=== PATIENT | female | born 1935 | race Caucasian/White ===

== ENCOUNTER 2017-09-22 05:48 | Emergency (ER) | payer MEDICARE, BC ==
[2017-09-22] MEDS ORDERED: methylPREDNISolone Sodium Succinate 125 MG/2 ML SDV IVPUSH ONE (06:18)
[2017-09-22] MEDS ORDERED: Famotidine 20 MG/2 ML SDV IVPUSH ONE (06:19)
[2017-09-22] MEDS ORDERED: Loratadine 10 MG Tab PO ONE (06:19)
[2017-09-22] MEDS ORDERED: diphenhydrAMINE 50 MG/ML SDV IVPUSH ONE (06:19)
--- NOTE | 2017-09-22 06:46 | EDM.PDOC ---
ED HPI GENERAL MEDICAL PROBLEM - General Chief Complaint: ENT Problem Stated Complaint: SORE THROAT Time Seen by Provider: 09/22/17 06:05 Source of Information: Reports: Patient History Limitations: Reports: No Limitations - History of Present Illness INITIAL COMMENTS - FREE TEXT/NARRATIVE: c/o ST pt with slight ST and rhinorrhea x 3d, inc'd ST yesterday, had trouble breathing during the night, needed to sit forward at least twice during the night to breath no f/c/d no h/o asthma, hayfever or allergies no change in meds in at least 3y has used OTC cold med with limited benefit throat Pain Score (Numeric/FACES): 10 - Related Data Allergies Allergy/AdvReac Type Severity Reaction Status Date / Time No Known Allergies Allergy Verified 09/22/17 06:02 Home Meds: Home Meds Allopurinol [Zyloprim] 300 mg PO DAILY 01/10/14 [History] Aspirin [Jesusita Chewable Aspirin] 81 mg PO DAILY 01/10/14 [History] Atenolol/Chlorthalidone [Tenoretic 50] 0.5 each PO DAILY 01/10/14 [History] Calcium Carbonate/Vitamin D3 [Calcium 600 + Vit D Tablet] 1 each PO BID [History] Cholestyramine/Aspartame [Cholestyramine Light Powder] 1 packet PO ASDIRECTED [History] Lisinopril 5 mg PO DAILY 01/10/14 [History] Loperamide [Imodium] 2 mg PO ASDIRECTED PRN 01/10/14 [History] Multivitamin [Multivitamins] 1 each PO DAILY 01/10/14 [History] Sertraline HCl 50 mg PO DAILY 01/10/14 [History] Simvastatin 20 mg PO DAILY 01/10/14 [History] metFORMIN [Glucophage] 500 mg PO BID 01/10/14 [History] Famotidine 20 mg PO DAILY #5 tablet 09/22/17 [Rx] Loratadine 10 mg PO DAILY #30 tablet 09/22/17 [Rx] predniSONE [Prednisone] 20 mg PO DAILY #7 tablet 09/22/17 [Rx] Past Medical History HEENT History: Reports: Impaired Vision Cardiovascular History: Reports: High Cholesterol, Hypertension Endocrine/Metabolic History: Reports: Diabetes, Type II - Past Surgical History HEENT Surgical History: Reports: Cataract Surgery Female Surgical History: Reports: Hysterectomy Social & Family History - Alcohol Use Days Per Week of Alcohol Use: 0 - Recreational Drug Use Recreational Drug Use: No ED ROS ENT - Review of Systems Review Of Systems: See Below Constitutional: Reports: No Symptoms. Denies: Fever, Chills, Malaise, Weakness , Night Sweats, Diaphoresis HEENT: Reports: Rhinitis, Throat Pain, Throat Swelling Respiratory: Reports: Shortness of Breath Endocrine: Reports: No Symptoms GI/Abdominal: Reports: No Symptoms : Reports: No Symptoms Musculoskeletal: Reports: No Symptoms Skin: Reports: No Symptoms Neurological: Reports: No Symptoms Psychiatric: Reports: No Symptoms Hematologic/Lymphatic: Reports: No Symptoms Immunologic: Reports: No Symptoms ED EXAM, ENT - Physical Exam Exam: See Below Exam Limited By: No Limitations General Appearance: Alert, WD/WN, Mild Distress, Other (walks and moves easily) Eye Exam: Bilateral Eye: Normal Inspection Ears: Normal External Exam, Normal Canal, Hearing Grossly Normal, Normal TMs Nose: Normal Inspection, Normal Mucousa, No Blood, Other (no swell, no mucus, patent, max sinus NT) Mouth/Throat: Other (mild swell of tongue (inc'd 25%), moderate swell of uvula ( 3x nl size), no red, no exudate, oropharynx seen) Head: Atraumatic, Normocephalic Neck: Normal Inspection, Supple, Non-Tender, Full Range of Motion. No: Lymphadenopathy (R), Lymphadenopathy (L) Respiratory/Chest: No Respiratory Distress, Lungs Clear, Normal Breath Sounds, No Accessory Muscle Use, Chest Non-Tender Cardiovascular: Regular Rate, Rhythm, No Edema, No Gallop, No JVD, No Murmur, No Rub GI/Abdominal: Normal Bowel Sounds, Soft, Non-Tender, No Distention, No Mass Back: Normal Inspection, Full Range of Motion Extremities: Normal Inspection, Normal Range of Motion, Non-Tender, No Pedal Edema Neurological: Alert, Oriented, CN II-XII Intact, Normal Cognition, No Motor/ Sensory Deficits Psychiatric: Normal Affect, Normal Mood Skin: Warm, Dry, Intact, Normal Color, No Rash Lymphatic: No Adenopathy Course - Vital Signs Last Recorded V/S: Last Vital Signs Temp 36.8 C 09/22/17 05:50 Pulse 82 09/22/17 05:50 Resp 20 09/22/17 05:50 BP 146/69 H 09/22/17 05:50 Pulse Ox 93 L 09/22/17 05:50 - Orders/Labs/Meds Orders: Active Orders 24 hr Category Date Time Status Max Facial Sinus wo Cont [CT] Stat Exams 09/22/17 06:23 Ordered Soft Tissue Neck wo Cont [CT] Stat Exams 09/22/17 06:23 Ordered CBC WITH AUTO DIFF [HEME] Stat Lab 09/22/17 06:19 Ordered COMPREHENSIVE METABOLIC PN,CMP [CHEM] Stat Lab 09/22/17 06:19 Ordered CRP [C-REACTIVE PROTEIN] [CHEM] Stat Lab 09/22/17 06:19 Ordered Meds: Medications Discontinued Medications Generic Name Dose Route Start Last Admin Trade Name Kevin PRN Reason Stop Dose Admin Diphenhydramine HCl 50 mg 09/22/17 06:19 Benadryl IVPUSH 09/22/17 06:20 ONETIME ONE Famotidine 20 mg 09/22/17 06:19 Pepcid IVPUSH 09/22/17 06:20 ONETIME ONE Loratadine 10 mg 09/22/17 06:19 Claritin PO 09/22/17 06:20 ONETIME ONE Methylprednisolone Sodium Succinate 125 mg 09/22/17 06:18 Solu-Medrol IVPUSH 09/22/17 06:19 ONETIME ONE - Re-Assessments/Exams Free Text/Narrative Re-Assessment/Exam: 09/22/17 06:58 d/w Dr Morton at change of shift, he will f/u with labs and CT of sinuses and soft neck tissues no evidence of infection despite rhinorrhea which also appear allergic lisinopril is most likely culprit, followed by allopurinol and metformin food items need to be considered, pt reports no new foods will empirically stop lisinopril and have pt f/u with PCP pt understands that sxs may return if she continues to be exposed to the allergen trigger will tx 5d with prednisone and antihistamines Dr Morton will modify d/c instructions as needed Departure - Departure Time of Disposition: 08:15 Disposition: Home, Self-Care 01 Condition: Good Clinical Impression: Allergic angioedema - Discharge Information Prescriptions: Famotidine 20 mg PO DAILY #5 tablet Loratadine 10 mg PO DAILY #30 tablet predniSONE [Prednisone] 20 mg PO DAILY #7 tablet Instructions: Angioedema Referrals: Joe Peguero MD [Primary Care Provider] - Additional Instructions: Stop taking the lisinopril. Take prednisone 20 mg 2 tabs today and tomorrow, then 1 tab daily for 3 more days. Take loratadine 10 mg 1 tab daily for 5 days, longer if needed. Take famotidine 20 mg 1 tab daily for 5 days. If needed, take diphenhydramine (Benadryl) 25 mg 1-2 tabs 4 times a day. See Dr Peguero in 3 days. Call your Physician or Return to Emergency Department if: * Your condition worsens in any way. * You develop fever greater than 100.4. * You have vomitting that does not stop with medications. * You have pain that is not controlled with medications. - My Orders Last 24 Hours: My Active Orders 09/22/17 06:19 CBC WITH AUTO DIFF [HEME] Stat COMPREHENSIVE METABOLIC PN,CMP [CHEM] Stat CRP [C-REACTIVE PROTEIN] [CHEM] Stat 09/22/17 06:23 Max Facial Sinus wo Cont [CT] Stat Soft Tissue Neck wo Cont [CT] Stat - Assessment/Plan Last 24 Hours: My Active Orders 09/22/17 06:19 CBC WITH AUTO DIFF [HEME] Stat COMPREHENSIVE METABOLIC PN,CMP [CHEM] Stat CRP [C-REACTIVE PROTEIN] [CHEM] Stat 09/22/17 06:23 Max Facial Sinus wo Cont [CT] Stat Soft Tissue Neck wo Cont [CT] Stat
[2017-09-22] MEDS ORDERED: Iopamidol 755 Mg/ML 75 ML Bottle IV ONE (07:19)
== END 2017-09-22 08:28 | disposition home or self-care (01) ==
LOC: FB.ED 05:48
DX: T78.3XXA Angioneurotic edema, initial encounter (principal); E78.00 Pure hypercholesterolemia, unspecified; I10 Essential (primary) hypertension; E11.9 Type 2 diabetes mellitus without complications; Z79.82 Long term (current) use of aspirin; Z79.899 Other long term (current) drug therapy
CPT/HCPCS: 36415; 70486; 70491; 80053; 85025; 86140; 87081; 87430; 96374; 96375; 99284; A9270-GY; J1200; J2930; Q9967; S0028